=== PATIENT | female | born 1970 | race Caucasian/White ===

== ENCOUNTER → 2021-09-08 | Outpatient (CLI) | payer BC | LOC: COL.VAS 07:39 | DX: I65.21 Occlusion and stenosis of right carotid artery (principal); E04.1 Nontoxic single thyroid nodule ==

== ENCOUNTER → 2021-09-11 | Outpatient (CLI) | payer BC | LOC: COL.RAD 10:09 | DX: E04.1 Nontoxic single thyroid nodule (principal) ==